=== PATIENT | male | born 1975 | race African-American/Black ===

== ENCOUNTER 2016-07-14 10:01 | Emergency (ER) | payer MEDICAID, OTHER ==
[~2016-07-14] VITALS: Ht 185.4 cm; Wt 113.4 kg
[2016-07-14 11:22] LABS: Basophils # (auto) 0.1 uL; Basophils % (auto) 1.7 % (0.0-2.0); DEFINITIVE VIEW TRANSMISSION; Eosinophils # (auto) 0.2 uL; Eosinophils % (auto) 3.8 % (0.0-7.0); Hematocrit 44.4 % (41.0-53.0); Lymphocytes # (auto) 2.2 uL; Mean Corpuscular Hemoglobin 25.6 pg (28.0-32.0); Mean Corpuscular Hgb Conc. 31.5 g/dL (32.0-36.0); Mean Corpuscular Volume 81.1 fL (80.0-100.0); Mean Platelet Volume 10.3 fL (7.4-10.4); Monocytes # (auto) 0.3 uL; Monocytes % (auto) 6.7 % (0.0-12.0); Neutrophils # (auto) 1.8 uL; Neutrophils % (auto) 38.8 % (37.0-80.0); Platelet Count (auto) 234 10^3/uL (140-450); Red Cell Distribution Width 13.8 % (11.6-16.0); SUSPECT VIEW TRANSMISSION; White Blood Cell 4.6 10^3/uL (4.4-10.8)
[2016-07-14 11:33] LABS: Urine Bilirubin Negative (Negative); Urine Color Yellow (Yellow); Urine Glucose Normal (Normal); Urine Ketone Negative (Negative); Urine Mucus FEW (None Seen); Urine Nitrite Negative (Negative); Urine RBC 2 /hpf (0 - 3); Urine Squamous Epithelial Cell FEW /hpf (<5); Urine Urobilinogen Normal (Negative)
[2016-07-14 11:48] LABS: Albumin 3.7 g/dL (3.4-5.0); BUN/Creatinine Ratio 10.1; Bilirubin, Total 0.4 mg/dL (0.2-1.0); Calcium 8.5 mg/dL (8.5-10.1); Potassium 3.9 mmol/L (3.5-5.1)
[2016-07-14 11:50] LABS: Urine Blood 1+ /uL (Negative)
[2016-07-14] MEDS ORDERED: SODIUM CHLORIDE 0.9% 1,000 ML IV ONE (15:26)
[2016-07-14] MEDS ORDERED: cefTRIAXone 1GM/50ML D5W 50 ML IV ONE (15:30)
[2016-07-14] MEDS ORDERED: ALUM & MAG HYDROX-SIMETH LIQ(MAALOX) 30 ML PO ONE (15:30)
[2016-07-14] MEDS ORDERED: DONNATAL 5ml ORAL Elix (BELLADONNA ALK-PHENOBARB) PO ONE (15:30)
[2016-07-14] MEDS ORDERED: LIDOCAINE VISCOUS 2% 15ML UD PO ONE (15:30)
[2016-07-14 17:00] VITALS: BP 101/52
== END 2016-07-14 18:08 | disposition home or self-care (01) ==
LOC: ER 10:15
DX: R31.9 Hematuria, unspecified (principal)
CPT/HCPCS: 36415; 74176; 80053; 81001; 85025; 86677; 96365; 99285; J0696; J7030

== ENCOUNTER 2020-06-07 14:52 | Emergency (ER) | payer MEDICAID, OTHER ==
[~2020-06-07] VITALS: Ht 185.4 cm; Wt 124.7 kg
[2020-06-07 15:32] VITALS: BP 115/80
[2020-06-07] MEDS ORDERED: LIDOCAINE 1% HCL (LOCAL ANESTH.) INJ 20ML MDV IJ ONE (16:00)
[2020-06-07] MEDS ORDERED: TETANUS-DIPTH-ACEL PERTUSSIS 0.5ML SYR Tdap IM ONE (16:15)
== END 2020-06-07 16:23 | disposition home or self-care (01) ==
LOC: ER 14:52
DX: S61.210A Laceration without foreign body of right index finger without damage to nail, initial encounter (principal); W26.8XXA Contact with other sharp object(s), not elsewhere classified, initial encounter; Y93.89 Activity, other specified; Y92.89 Other specified places as the place of occurrence of the external cause; Y99.8 Other external cause status
CPT/HCPCS: 12001; 90471; 90715; 99283; J2001